=== PATIENT | male | born 1960 | race Caucasian/White ===

== ENCOUNTER → 2019-04-16 | Outpatient (CLI) | payer OTHER ==
--- NOTE | 2019-04-17 17:48 | PCVCIMAG ---
APPROVED REPORT Study performed: 04/16/2019 13:36:18 EXAM: Comprehensive 2D, Doppler, and color-flow Echocardiogram Patient Location: Echo lab Status: routine BSA: 2.13 HR: 70 bpmBP: 112/56 mmHg Rhythm: NSR w/ frequent PACs Other Information Study Quality: Adequate Risk Factors: Cardiac Risk Factors: HTN Indications Dyspnea elevated calcium score 2D Dimensions IVSd: 11.14 (7-11mm) LVDd: 36.32 mm PWd: 10.40 (7-11mm)Ascending Ao: 33.27 (22-36mm) LVDs: 28.06 (25-40mm) Left Atrium: 35.54 (27-40mm) Aortic Root: 29.02 mm LV Single Plane 4CH: 41.02 % LV Single Plane 2CH: 61.78 % Biplane EF: 54.1 % Volumes Left Atrial Volume (Systole) Single Plane 4CH: 36.22 mLSingle Plane 2CH: 57.75 mL LA ESV Index: 22.00 mL/m2 Aortic Valve AoV Peak [place].: 1.46 m/s AO Peak Gr.: 8.63 mmHgLVOT Max P.15 mmHg LVOT Max V: 1.02 m/s Mitral Valve E/A Ratio: 0.9 MV Decel. Time: 316.02 ms MV E Max [place].: 0.50 m/s MV A [place].: 0.57 m/s IVRT: 114.19 ms Pulmonary Valve PV Peak [place].: 0.97 m/sPV Peak Gr.: 3.78 mmHg Pulmonary Vein P Vein S: 0.26 m/sP Vein A: 0.47 m/s P Vein D: 0.38 m/sP Vein A Dur.: 169.6 msec P Vein S/D Ratio: 0.68 Tricuspid Valve TR Peak [place].: 2.41 m/s TR Peak Gr.: 23.16 mmHg Left Ventricle The left ventricle is normal size. There is normal LV segmental wall motion. There is normal left ventricular wall thickness. Left ventricular systolic function is normal. The left ventricular ejection fraction is within the normal range. LVEF is 50-55%. Grade I - abnormal relaxation pattern. Right Ventricle The right ventricle is normal size. The right ventricular systolic function is normal. Atria The left atrium size is normal. The interatrial septum is intact with no evidence for an atrial septal defect. The right atrium size is normal. Aortic Valve The aortic valve is normal in structure. No aortic regurgitation is present. There is no aortic valvular stenosis. Mitral Valve The mitral valve is normal in structure. Trace mitral regurgitation. No evidence of mitral valve stenosis. Tricuspid Valve The tricuspid valve is normal in structure. Mild tricuspid regurgitation with PAP of 30 mmHg. Pulmonic Valve The pulmonary valve is normal in structure. There is no pulmonic valvular regurgitation. Great Vessels The aortic root is normal in size. IVC is normal in size and collapses >50% with inspiration. Pericardium There is no pericardial effusion. There is no pleural effusion. <Conclusion> The left ventricle is normal size. LVEF is 50-55%. Grade I - abnormal relaxation pattern. The interatrial septum is intact with no evidence for an atrial septal defect. The left atrium size is normal. The aortic valve is normal in structure. Trace mitral regurgitation. The aortic root is normal in size. There is no pericardial effusion.
--- NOTE | 2019-04-18 14:38 | PCVCIMAG ---
APPROVED REPORT Patient Location: Echo lab Room #: Stress Nurse: Griselda Coronel RN Treadmill Stress Test Indications- elevated coronary calcium score, dyspnea, htn, hlp The patient exercised according to the ALVARO protocol for 9:17 mins; achieving a work level of 11 METS. The resting heart rate of 78 bpm subha to a maximum heart rate of 129 bpm. This value represent 79 % of the maximal, age-predicted heart rate. The resting blood pressure of 112/56 mmHg, subha to a maximum blood pressure of 188/72 mmHg. The exercise test was stopped due to fatigue, leg fatigue and dyspnea. Conclusion #1 no reproduction of chest pain or angina was elicited. He stopped secondary to fatigue and shortness of breath. #2 no diagnostic EKG changes consistent with ischemia no significant ectopy. #3 good exercise tolerance with an appropriate hemodynamic response. Pression: Negative treadmill stress test for ischemia or any significant dysrhythmia.
== END | disposition home or self-care (01) ==
LOC: PCVCIMAG 14:10
PROVIDERS: ATTEND Internal Medicine Cardiovascular Disease
DX: R06.00 Dyspnea, unspecified (principal); R93.1 Abnormal findings on diagnostic imaging of heart and coronary circulation
CPT/HCPCS: 93017; 93306

== ENCOUNTER → 2019-05-02 | Outpatient (CLI) | payer OTHER ==
--- NOTE | 2019-05-02 12:53 | PCVCIMAG ---
EXAM: BILATERAL RENAL ULTRASOUND AND BILATERAL RENAL DUPLEX INDICATION: Hypertension FINDINGS: Right kidney: Length measures 13.2 cm. No hydronephrosis or extensive renal scarring. Right renal duplex: Adequate technical quality. No sonographic evidence of renal artery stenosis. The aortic to renal artery ratio is 1.5. The renal vein is patent. Left kidney: Length measures 13.6 cm. No hydronephrosis or extensive renal scarring. Left renal duplex: Adequate technical quality. No sonographic evidence of renal artery stenosis. The aortic to renal artery ratio is 1.5. The renal vein is patent. Bladder: No obvious abnormalities. IMPRESSION: No significant renal artery stenosis. No hydronephrosis bilaterally. LOC:[id number]
== END | disposition home or self-care (01) ==
LOC: PCVCIMAG 09:42
PROVIDERS: ATTEND Internal Medicine Cardiovascular Disease
DX: I10 Essential (primary) hypertension (principal)
CPT/HCPCS: 76770; 93975